=== PATIENT | male | born 1975 ===

== ENCOUNTER → 2020-06-02 | Outpatient (CLI) | payer BC ==
[~2020-06-02] MED LIST: BAMLANIVIMAB (EUA) 700 MG in NS 250ML 180 ML IV ONE
[2020-06-02 10:15] VITALS: BP 164/89
[2020-06-02 10:44] VITALS: BP 164/95
[2020-06-02 11:43] VITALS: BP 159/79
== END | disposition home or self-care (01) ==
LOC: OPTX 09:22
PROVIDERS: ATTEND Physician Assistant
DX: U07.1 COVID-19 (principal)
CPT/HCPCS: J7050; M0239; Q0239; 96365; 96366

== ENCOUNTER 2020-10-25 17:49 | Emergency (ER) | payer BC ==
[~2020-10-25] VITALS: Ht 188 cm; Wt 152.0 kg
[2020-10-25] MEDS ORDERED: ASPIRIN ONE (17:59)
[2020-10-25 18:04] VITALS: BP 156/81
[2020-10-25 18:12] VITALS: BP 160/65
--- NOTE | 2020-10-25 18:15 | PCM.EKG ---
[facility] Test Date: 2020-10-25 Test Time: 17:52:25 Pat Name: ROSALIE VILLALOBOS Department: Room: Gender: M Welt Rander: ADILENE : 1975 Requested By: NATAN RODNEY Order Number: [id number] Reading MD: Natan Rodney Measurements Intervals Gray Rate: 92 P: 57 NE: 143 QRS: 60 QRSD: 95 T: 60 QT: 342 QTc: 424 Interpretive Statements Sinus rhythm Multiple ventricular premature complexes Baseline wander in lead(s) I,III,aVL,V2,V3 No previous ECG available for comparison Electronically Signed On 10-25-2020 18:43:02 CDT by Natan Rodney Please click the below link to view image of tracing.
--- NOTE | 2020-10-25 18:18 | ER.PDOC ---
General Chief Complaint: Chest Pain-Cardiac Nature Stated Complaint: CHEST PAIN Time seen by MD: 17:55 Source: patient Exam Limitations: no limitations History of Present Illness Initial Comments This 45-year-old rather obese black male comes in with a complaint of left-sided chest pain that is a pressure type sensation in his left chest that it feels like somebody stepping on his chest. Patient states that this has been happening several times a day over the last 4 days. 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 So when he is exerting himself the pain goes away. 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 Patient does sometimes have some heartburn but he denies burping up anything or feel anything coming up into the back of his throat. Patient states that the aspirin we gave him here did nothing the Tylenol sees me the nitro that we give him here did nothing for him. His cardiac risk factors is hypertension and he is on 3 medications for that and is for the most part controlled his blood pressure well. He does not know what his cholesterol is he is not diabetic family history has extensive hypertension history his brother however at 43 however from an acute MA. 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 It resolves with exertion.) Severity/Quality: severe Radiation: no radiation (Once he complained of a sharp pain up into his neck but that does not usually occur with his pressure in his chest.) Activities at Onset: other (Activity that always seems to bring his son is driving the truck. Exertion makes it go away) Prior CP/Workup: No Prior Chest Pain Modifying Factors: other (Exertion makes his pain go away) Nitro Today/Relief: No Nitro Taken Today Aspirin Today: No Aspirin Today Associated Symptoms: diaphoresis Allergies: Coded Allergies: No Known Allergies (Unverified , 10/25/20) Past Medical History Medical History: hypertension Surgical History: no surgical history Family History Significant Family History: heart disease, hypertension (Patient did have a brother from acute coronary at age 43. This just happens to be the same as of this gentleman. No matter what his labs show a believe he needs a cardiac evaluation to completely work this up.) Social History Smoking: non-smoker Alcohol Use: none Drug Use: none Cardiovascular: see HPI, chest pain All Other Systems: Reviewed and Negative Physical Exam General Appearance: No Apparent Distress, WD/WN HEENT: PERRL/EOMI, Normal ENT Inspection, TMs Normal, Pharynx Normal Neck: Non-Tender, Full Range of Motion, Supple, Normal Inspection Respiratory: chest non-tender, lungs clear, normal breath sounds, no respiratory distress, no accessory muscle use Cardiovascular: Normal Peripheral Pulses, Regular Rate, Rhythm, No Edema, No Gallop, No JVD, No Murmur Gastrointestinal: Normal Bowel Sounds, No Organomegaly, No Pulsatile Mass, Non Tender, Soft Extremities: Normal Range of Motion, Non-Tender, Normal Inspection, No Pedal Edema, No Calf Tenderness, Normal Capillary Refill Neurologic/Psychiatric: 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 He does not have any ST elevations or depressions suggestive of any acute injury or ischemiaHis chemistriesHis chemistriesCBC is unremarkable his H. pylori is positive. ER DEPART Departure Time of Disposition: 19:06 Disposition: 01 HOME / SELF CARE / HOMELESS Impression: Primary Impression: Nonspecific chest pain Additional Impression: H. pylori infection Condition: Improved Referrals: TYLOR MG (PCP) PRIMARY CARE PROVIDER Comments Clarithromycin 500 mg twice daily x2 weeks. Amoxicillin 500 mg tabs 2 p.o. twice daily x2 weeks. Nexium 40 mg p.o. daily x30 days. Patient is also instructed to follow-up with Dr. Hawkins of cardiology to complete a cardiac work-up Duration or Time Spent with Pa: 25m Problem Qualifiers VAL RODNEY MD Oct 25, 2020 18:18
[2020-10-25 18:19] LABS: BASOPHIL % 0.3 % (0.0-0.2); EOSINOPHIL # 0.2 10^3/uL (0.0-0.2); EOSINOPHIL % 2.8 % (0.0-5.0); LYMPHOCYTES # 3.19 10^3/uL1 (1.0-4.8); MEAN CORP HGB 31.3 pg (26-34); MONOCYTES # 0.7 10^3/uL (0.3-0.8); MONOCYTES % 11.7 % (5.0-12.0); NEUTROPHILS % 33.2 % (41.0-85.0); PLATELET COUNT 167 10^3/uL (150-400); RED CELL DISTRIBUTION WIDTH 12.7 % (11.5-14.5)
[2020-10-25] MEDS ORDERED: NITROSTAT SL ONE (18:30)
[2020-10-25] MEDS ORDERED: ASPIRIN PO PRN (18:30)
[2020-10-25 18:47] LABS: ALANINE AMINOTRANSFERASE(ML) 66 U/L (12-78); ALKALINE PHOSPHATASE 51 U/L (50-136); ASPARTATE AMINO TRANSFERASE 29 U/L (0-35); CALCIUM 8.8 mg/dL (8.4-10.5); CARBON DIOXIDE 22.7 mmol/L (20.0-32); GLUCOSE 113 mg/dL (70-110)
== END 2020-10-25 19:20 | disposition home or self-care (01) ==
LOC: ER 17:51
DX: R07.89 Other chest pain (principal); M54.9 Dorsalgia, unspecified; R12 Heartburn; B96.81 Helicobacter pylori [H. pylori] as the cause of diseases classified elsewhere; I10 Essential (primary) hypertension; Z82.49 Family history of ischemic heart disease and other diseases of the circulatory system; E66.01 Morbid (severe) obesity due to excess calories; Z68.43 Body mass index [BMI] 50.0-59.9, adult
CPT/HCPCS: 36415; 80053; 82550; 82553; 83880; 84484; 85025; 85610; 85730; 86677; 93005; 99284